=== PATIENT | male | born 2000 | race Two or more races ===

== ENCOUNTER 2020-08-13 11:26 | Inpatient (IN) | payer OTHER ==
[~2020-08-13] VITALS: Ht 172.7 cm; Wt 84.6 kg
--- NOTE | 2020-08-13 12:54 | NUR ---
PT AMBULATED TO BR INDEPENDENTLY. UA OBTAINED AND SENT TO LAB.
[2020-08-13] MEDS ORDERED: FAMOTIDINE 20 MG/2 ML ONE (12:56)
[2020-08-13] MEDS ORDERED: ONDANSETRON 2MG/ML, 2ML ONE (12:56)
[2020-08-13] MEDS ORDERED: SODIUM CHLORIDE 0.9% 1,000ML IVBOLUS ONE ×2 (13:00→15:00)
[2020-08-13] MEDS ORDERED: SODIUM CHLORIDE FLUSH 10ML SYR IVF ONE (13:00)
[2020-08-13] MEDS ORDERED: ONDANSETRON 2MG/ML, 2ML IVPush ONE (13:00)
[2020-08-13] MEDS ORDERED: FAMOTIDINE 20 MG/2 ML IVPush ONE (13:00)
--- NOTE | 2020-08-13 13:10 | NUR ---
PT TO XRAY
[2020-08-13 13:27] LABS: MEAN CORPUSCULAR HEMOGLOBIN 29.7 pg (27.5-34.5); MEAN CORPUSCULAR HGB CONC 35.4 g/dL (33.2-36.2); MEAN PLATELET VOLUME 7.3 fL (7.4-10.4); PLATELET COUNT 498 x10^3/uL (130-400); RED BLOOD COUNT 6.35 x10^6/uL (4.38-5.82); RED CELL DISTRIBUTION WIDTH 14.6 % (9.4-14.8)
[2020-08-13 13:30] LABS: MD YES
--- NOTE | 2020-08-13 13:35 | NUR ---
PT BACK FROM XRAY
[2020-08-13 13:38] LABS: ALANINE AMINOTRANSFERASE 47 U/L (12-78); ALBUMIN 4.3 g/dL (3.4-5.0); ANION GAP 7 mmol/L (5-15); CALCIUM 8.9 mg/dL (8.5-10.1); CHLORIDE 109 mmol/L (98-107)
[2020-08-13 13:40] LABS: ALKALINE PHOSPHATASE 100 U/L (45-117); BILIRUBIN,TOTAL 1.5 mg/dL (0.2-1.0); TOTAL PROTEIN 8.1 g/dL (6.4-8.2)
[2020-08-13 13:47] LABS: <PLATELET ESTIMATE> INCREASED; <PLT MORPHOLOGY> NORMAL PLT MORPH; <RBC MORPHOLOGY> NORMAL; BAND#(MANUAL) 2.07 x10^3/uL; BANDS%(MANUAL) 7 % (0-7); LYMPHS% (MANUAL) 1 % (22-44); MONOS#(MANUAL) 1.48 x10^3/uL (0.3-2.7); MONOS% (MANUAL) 5 % (2-9); SEG#(MANUAL) 25.67 x10^3/uL (1.8-6.8); SEGS% (MANUAL) 87 % (42-75)
--- NOTE | 2020-08-13 14:33 | NUR ---
UA SAMPLE COLLECTED.
[2020-08-13 15:17] LABS: MICROSCOPIC INDICATED
--- NOTE | 2020-08-13 15:29 | NUR ---
PT RESTING COMFORTABLY. NO NEEDS AT THIS TIME. EDP TO RECHECK
[2020-08-13] MEDS ORDERED: KETOROLAC 30 MG/1 ML ONE (16:10)
[2020-08-13] MEDS ORDERED: KETOROLAC 30 MG/1 ML IVPush ONE (16:30)
--- NOTE | 2020-08-13 17:29 | NUR ---
Patient is resting comfortably in bed. Vital Signs within normal limits.
[2020-08-13] MEDS ORDERED: DIPHENHYDRAMINE 25 MG CAPSULE PO PRN (17:30)
[2020-08-13] MEDS ORDERED: SODIUM CHLORIDE FLUSH 10ML SYR IVF PRN (17:30)
[2020-08-13] MEDS ORDERED: hydrALAzine 20 MG/ML, 1ML IVPush PRN (17:30)
[2020-08-13] MEDS ORDERED: ONDANSETRON 2MG/ML, 2ML IVPush PRN (17:30)
[2020-08-13] MEDS ORDERED: SODIUM CHLORIDE 0.9% 1,000 ML IV ONE (17:30)
[2020-08-13] MEDS: LEVOFLOXACIN/PMX 500MG/100ML 100 ML IV SCH (17:30)
[2020-08-13] MEDS ORDERED: LEVOFLOXACIN/PMX 500MG/100ML 100 ML IV ONE (17:30)
[2020-08-13] MEDS ORDERED: METHOCARBAMOL 500 MG TABLET PO PRN (17:30)
[2020-08-13] MEDS ORDERED: ONDANSETRON ODT 4 MG PO PRN (17:30)
[2020-08-13] MEDS ORDERED: LEVOFLOXACIN/PMX 500MG/100ML 100 ML ONE (17:32)
[2020-08-13] MEDS: ACETAMINOPHEN 325 MG TABLET PO PRN (18:38)
[2020-08-13] MEDS: SODIUM CHLORIDE 0.9% 1,000 ML IV SCH (18:40)
[2020-08-13 19:22] VITALS: BP 116/61
[2020-08-13] MEDS: FAMOTIDINE 20 MG/2 ML IVPush SCH (20:24)
[2020-08-14 00:06] VITALS: BP 105/65
[2020-08-14] MEDS: SODIUM CHLORIDE 0.9% 1,000 ML IV SCH ×3 (01:29→17:59)
[2020-08-14 05:07] LABS: BASOPHILS % (AUTO) 0 % (0-1); EOSINOPHILS % (AUTO) 1 % (1-7); LYMPHOCYTES % (AUTO) 9 % (22-44); MEAN CORPUSCULAR HEMOGLOBIN 29.8 pg (27.5-34.5); MEAN CORPUSCULAR HGB CONC 35.2 g/dL (33.2-36.2); MONOCYTES % (AUTO) 15 % (2-9); NEUTROPHILS % (AUTO) 75 % (42-75); PLATELET COUNT 424 x10^3/uL (130-400); RED BLOOD COUNT 5.19 x10^6/uL (4.38-5.82); RED CELL DISTRIBUTION WIDTH 14.9 % (9.4-14.8)
[2020-08-14 05:15] LABS: ALBUMIN 3.1 g/dL (3.4-5.0); ANION GAP 5 mmol/L (5-15); CALCIUM 7.9 mg/dL (8.5-10.1); CHLORIDE 111 mmol/L (98-107)
[2020-08-14 05:19] LABS: ALANINE AMINOTRANSFERASE 31 U/L (12-78); ALKALINE PHOSPHATASE 69 U/L (45-117); BILIRUBIN,TOTAL 1.4 mg/dL (0.2-1.0); CREATININE 0.75 mg/dL (0.7-1.3); TOTAL PROTEIN 5.8 g/dL (6.4-8.2)
[2020-08-14 05:43] LABS: MD SCAN
[2020-08-14] MEDS: ACETAMINOPHEN 325 MG TABLET PO PRN ×2 (06:11→16:52)
[2020-08-14] MEDS: FAMOTIDINE 20 MG/2 ML IVPush SCH (08:38)
[2020-08-14 08:41] VITALS: BP 119/74
[2020-08-14] MEDS ORDERED: FLU VACC QS2020-21(6MOS UP)/PF 60MCG/0.5 ML SYR IM-VACC ONE (10:00)
[2020-08-14 12:06] VITALS: BP 110/69
[2020-08-14] MEDS: LEVOFLOXACIN/PMX 500MG/100ML 100 ML IV SCH (16:51)
[2020-08-14 20:00] VITALS: BP 100/65
[2020-08-14] MEDS: FAMOTIDINE 20 MG TABLET PO SCH (21:45)
[2020-08-15] MEDS: SODIUM CHLORIDE 0.9% 1,000 ML IV SCH ×2 (01:45→09:30)
[2020-08-15 01:55] VITALS: BP 93/53
[2020-08-15 05:15] LABS: MEAN CORPUSCULAR HEMOGLOBIN 30.3 pg (27.5-34.5); MEAN PLATELET VOLUME 6.9 fL (7.4-10.4); PLATELET COUNT 423 x10^3/uL (130-400); RED BLOOD COUNT 5.25 x10^6/uL (4.38-5.82); RED CELL DISTRIBUTION WIDTH 14.8 % (9.4-14.8)
[2020-08-15 05:25] LABS: ANION GAP 5 mmol/L (5-15); CALCIUM 8.3 mg/dL (8.5-10.1); CHLORIDE 113 mmol/L (98-107); CREATININE 0.77 mg/dL (0.7-1.3)
[2020-08-15 05:49] LABS: MD YES
[2020-08-15 05:51] LABS: BAND#(MANUAL) 0.12 x10^3/uL; BANDS%(MANUAL) 2 % (0-7); EOS#(MANUAL) 0.06 x10^3/uL (0.0-0.4); EOS% (MANUAL) 1 % (1-7); LYMPH#(MANUAL) 1.83 x10^3/uL (1-3.4); LYMPHS% (MANUAL) 30 % (22-44); MONOS#(MANUAL) 1.04 x10^3/uL (0.3-2.7); MONOS% (MANUAL) 17 % (2-9); REACTIVE LYMPHS # (MANUAL) 0.12 x10^3/uL (0-0); REACTIVE LYMPHS % (MANUAL) 2 % (0-0); SEG#(MANUAL) 2.93 x10^3/uL (1.8-6.8); SEGS% (MANUAL) 48 % (42-75)
[2020-08-15 05:52] LABS: <PLATELET ESTIMATE> INCREASED; <PLT MORPHOLOGY> NORMAL PLT MORPH; <RBC MORPHOLOGY> NORMAL
[2020-08-15 07:11] VITALS: BP 116/69
[2020-08-15] MEDS: ACETAMINOPHEN 325 MG TABLET PO PRN (08:03)
[2020-08-15] MEDS: FAMOTIDINE 20 MG TABLET PO SCH (08:03)
== END 2020-08-15 10:52 | disposition home or self-care (01) | DRG 392 ==
LOC: ED 13:49 → EDIP 17:17 → SUATTDRO 17:29 → 3N 18:21
PROVIDERS: ADMIT Hospitalist; ATTEND Hospitalist
DX: A05.9 Bacterial foodborne intoxication, unspecified (principal); D68.0 Von Willebrand disease; K92.2 Gastrointestinal hemorrhage, unspecified; D75.1 Secondary polycythemia; E86.0 Dehydration; K44.9 Diaphragmatic hernia without obstruction or gangrene; R00.0 Tachycardia, unspecified; D72.829 Elevated white blood cell count, unspecified; Z90.81 Acquired absence of spleen; Z88.0 Allergy status to penicillin; Z89.512 Acquired absence of left leg below knee; Z88.1 Allergy status to other antibiotic agents; Z23 Encounter for immunization
CPT/HCPCS: 36415; 74021; 74176; 80048; 80053; 81001; 83690; 85025; 87046; 87427; 89055; 90686; 96361; 96374; 96375; 99285; G0378; J1885; J1956; J2405; J7030